=== PATIENT | male | born 1985 | race African-American/Black ===

== ENCOUNTER 2019-02-06 15:41 | Emergency (ER) | payer OTHER ==
--- NOTE | 2019-02-06 17:24 | ULT ---
VENOUS DOPPLER ULTRASOUND OF THE RIGHT LOWER EXTREMITY: Date: 02/06/19 HISTORY: Right lower extremity edema. TECHNIQUE: Fitzgerald scale ultrasound with color flow and spectral Doppler imaging of the deep venous systems of the right lower extremity performed. FINDINGS: There is absence of flow and compression due to intraluminal thrombus in the right posterior tibial a nd peroneal veins. The femoropopliteal venous system of the right lower extremity demonstrates good f low and compression without intraluminal thrombosis. IMPRESSION: Deep venous thrombosis in the right posterior tibial and peroneal veins. Discussed over the telephone with ER physician, Dr. Tim Veloz, at 1715 hours. CODE CR. POS: [place]
== END 2019-02-06 17:33 | disposition home or self-care (01) ==
LOC: NAV ERS 15:41
DX: I10 Essential (primary) hypertension (principal); I82.4Z1 Acute embolism and thrombosis of unspecified deep veins of right distal lower extremity; F84.0 Autistic disorder; J45.909 Unspecified asthma, uncomplicated; Z79.51 Long term (current) use of inhaled steroids; Z79.899 Other long term (current) drug therapy